=== PATIENT | female | born 1970 | race Two or more races ===

== ENCOUNTER → 2017-02-14 | Outpatient (CLI) | payer BC ==
--- NOTE | ~2017-02-14 | MY11 ---
[facility] A Service of [facility] RADIOLOGY TEXT RESULTS PATIENT: NAIF SANCHEZ LOCATION: [facility] : 70 UNIT #: [id number] AGE: [address]: JAYME RIOS APRN SEX: F ORDER DR: [id number] [facility] [address] [place], [place] [address] [id number] O MR#: [id number] Acc #: [id number] NAME: NAIF SANCHEZ : 1970 SEX: F STUDY DATE/TIME: 02/14/2017 9:19 UNIT: [facility] ROOM: STUDY DESCRIPTION: MY Mammogram Screening Dig Isael Attending Physician: Debbie Rios M.D. Ordering Physician: Debbie Rios M.D. Primary Care Physician: Ghassan Burgess M.D. MEDICAL IMAGING REPORT This report is preliminary unless electronic signature is present EXAM Digital screening mammogram 02/14/2017 HISTORY 46-year-old woman positive family history, grandmother. Annual screen. COMPARISON 06/11/2011, 12/18/2013, 12/31/2014, 01/20/2016. FINDINGS Digital imaging of each breast was completed utilizing a two-view examination of each breast in craniocaudal and mediolateral-oblique projections. Review and interpretation of digital mammograms include a second review in conjunction with FDA-approved CAD device. There is a normal parenchymal presentation bilaterally consistent with the patient's age. There are no breast masses imaged and no parenchymal asymmetry is visualized. There are no suspicious microcalcifications and I see no focal architectural disturbance. IMPRESSION Negative screening digital mammogram. One-year followup recommended. Patients over the age of 40 are entered into a reminder system with target due date for the next mammogram. A result letter will also be sent to the patient. BIRADS: 1 Negative Dictated by... Zyiad Samuels M.D. [facility] A Service of [facility] RADIOLOGY TEXT RESULTS PATIENT: NAIF SANCHEZ LOCATION: [facility] : 70 UNIT #: [id number] AGE: [address]: JAYME RIOS APRN SEX: F ORDER DR: THIS IS AN ELECTRONICALLY VERIFIED REPORT Ziyad Samuels M.D. at 02/14/2017 2:21 PM Bigg TD: 02/14/2017 13:44 JOB #: [id number] MEDICAL IMAGING REPORT COPY
== END | disposition home or self-care (01) ==
LOC: CWCC 08:57
DX: Z12.31 Encounter for screening mammogram for malignant neoplasm of breast (principal); Z80.3 Family history of malignant neoplasm of breast
CPT/HCPCS: G0202